=== PATIENT | male | born 1985 | race American Indian/Alaskan Native ===

== ENCOUNTER 2018-06-08 08:39 | Emergency (ER) | payer BC ==
[2018-06-08 08:48] VITALS: BP 107/69; PULSE 73; RESP 18; TEMP 98.2; O2SAT 97
--- NOTE | 2018-06-08 09:38 | C.PDOC ---
History Of Present Illness 32 y/o M p/w R upper back/shoulder pain x years. Patient states he has had pains like this chronically and has gone to see physicians, had MRI but does not know result and has done physical therapy. He states he is not taking any medication for the pain. Denies new injury, fever, dyspnea. Time Seen by Provider: 06/08/18 09:15 Chief Complaint (Nursing): Pain, Chronic Past Medical History Vital Signs: Last Vital Signs Temp 98.2 F 06/08/18 08:45 Pulse 73 06/08/18 08:45 Resp 18 06/08/18 08:45 BP 107/69 06/08/18 08:45 Pulse Ox 97 06/08/18 08:45 - Medical History PMH: Back Problems Family History: States: No Known Family Hx - Social History Hx Tobacco Use: Yes Hx Alcohol Use: Yes Hx Substance Use: No - Immunization History Hx Tetanus Toxoid Vaccination: No Hx Influenza Vaccination: Yes Hx Pneumococcal Vaccination: No Review Of Systems Except As Marked, All Systems Reviewed And Found Negative. Constitutional: Negative for: Fever Respiratory: Negative for: Shortness of Breath Physical Exam - Physical Exam Additional Physical Exam Comments: gen nad head nc eyes no scleral icterus ent mmm neck supple chest no tenderness cv reg rate lungs no acc muscle use abd soft nt back no midline tenderness, no focal tenderness, no scapular tenderness extremities from of shoulder no point tenderness neuro alert, motor intact ED Course And Treatment O2 Sat by Pulse Oximetry: 97 Medical Decision Making Medical Decision Making: advised patient to f/u with results of mri for further management but given that has already been evaluated and has mri for this chronic pain, no further imaging indicated at this time. Disposition - Disposition Referrals: [facility] [Outside] Disposition: HOME/ ROUTINE Disposition Time: 09:39 Condition: GOOD Prescriptions: Famotidine [Pepcid] 1 tab PO BID #14 tab Meloxicam [Mobic] 15 mg PO DAILY #14 tablet Instructions: Upper Back Pain Forms: [facility] (Swedish), Work Excuse - Clinical Impression Clinical Impression: Back pain
== END 2018-06-08 09:52 | disposition home or self-care (01) ==
LOC: C.ER 08:39
DX: M54.89 Other dorsalgia (principal)